=== PATIENT | female | born 1990 | race Hispanic/Latino ===

== ENCOUNTER 2024-10-15 21:35 | Emergency (ER) | payer BC, MEDICAID ==
[~2024-10-15] VITALS: Ht 149.9 cm; Wt 72.6 kg
[2024-10-15 21:36] VITALS: BP 146/93; PULSE 71; RESP 16; TEMP 97.9
--- NOTE | 2024-10-15 21:43 | NUR ---
UA CUP PROVIDED
[2024-10-15 21:57] LABS: BASOPHILS # (AUTO) 0.06 K/uL (0.00-0.20); BASOPHILS % (AUTO) 0.9 % (0.0-5.0); EOSINOPHILS # (AUTO) 0.04 K/uL (0.00-0.70); EOSINOPHILS % (AUTO) 0.6 % (0.0-8.0); IMMATURE GRANULOCYTE ABSOLUTE 0.01 K/uL (0-1); LYMPHOCYTES # (AUTO) 2.1 K/uL (1.0-4.8); LYMPHOCYTES % (AUTO) 30.5 % (21.0-51.0); MEAN CORPUSCULAR HEMOGLOBIN 28.6 pg (27.0-33.0); MEAN CORPUSCULAR HGB CONC 33.3 g/dL (32.0-36.0); MEAN CORPUSCULAR VOLUME 85.9 fL (79-99); MONOCYTES # (AUTO) 0.7 K/uL (0.1-1.0); MONOCYTES % (AUTO) 10.1 % (3.0-13.0); NEUTROPHILS % (AUTO) 57.8 % (40.0-77.0); PLATELET COUNT (AUTO) 293 K/uL (130-400); RED BLOOD CELL COUNT(AUTO) 4.19 MIL/uL (4.00-5.50); RED CELL DISTRIBUTION WIDTH 13.7 % (11.0-15.5); WHITE BLOOD COUNT (AUTO) 6.9 K/uL (4.8-10.8)
[2024-10-15 21:59] LABS: APPEARANCE,URINE CLEAR (CLEAR); BILIRUBIN,URINE NEGATIVE (NEGATIVE); COLOR,URINE LIGHT-YELLOW (YELLOW); GLUCOSE, URINE (UA) NEGATIVE (NEGATIVE); KETONES,URINE NEGATIVE (NEGATIVE); LEUKOCYTE ESTERASE ,URINE NEGATIVE Leu/uL (NEGATIVE); NITRATE,URINE NEGATIVE (NEGATIVE); OCCULT BLOOD,URINE SMALL (NEGATIVE); PROTEIN,URINE NEGATIVE (NEGATIVE); UROBILINOGEN,URINE 0.2 mg/dL (0.2-1.0)
[2024-10-15 22:01] LABS: ADD UA MICROSCOPIC YES
[2024-10-15 22:02] LABS: MUCUS,URINE RARE LPF (None Seen); SQUAMOUS EPITHELIAL CELL,UR RARE /HPF (0-2); WBC,URINE 0-1 /HPF (0-1)
[2024-10-15 22:06] LABS: CREATININE 0.8 mg/dL (0.5-1.0); POTASSIUM 3.5 mmol/L (3.5-5.1)
[2024-10-15 22:17] LABS: B-TYPE NATRIURETIC PEPTIDE < 5 pg/mL (0-100)
--- NOTE | 2024-10-16 01:26 | ERN ---
ED Note History of Present Illness Stated Complaint: CHEST PRESSURE Chief Complaint: Chest Pain Time Seen by MD: 21:43 Time Seen by Midlevel: 21:44 Dictation: 33-year-old female presents to the emergency department due to reported having some chest pressure sensation off and on for the past week but states that it started again today earlier this morning. She denies having any difficulty breathing associated with this. Patient states that there is no personal or family history of any cardiac condition. Upon initial evaluation, the patient presents in no acute distress. Allergies: Coded Allergies: No Known Drug Allergies (Unverified Allergy, Unknown, 05/23/16) Emergency Care [employer]: None Past Medical History Past Medical History: Hypertension Surgical History: LMP: Oct 13, 2024 RN Note Reviewed/Agreed w/PFSH: Yes Review of System Dictation Cardiovascular: Chest pressure Initial Vital Sign VS Vital Signs Date Time Temp Pulse Resp B/P (MAP) Pulse Ox O2 Delivery O2 Flow Rate FiO2 10/15/24 21:36 97.9 71 16 146/93 98 Room Air Physical Exam Dictation General: awake, alert, NAD Head/Face: Normocephalic, atraumatic Eyes: PERRL, EOMI ENT: Oral mucosa moist Neck: Trachea midline, supple Cardiovascular: RRR, no edema Respiratory: Symmetrical, non-labored Abdomen: Soft, non-tender, non-distended, no guarding. Skin: Warm, dry, good turgor, no rash MS/Extremity: Pulses equal, no cyanosis, neurovascular intact, FROM Neuro: COAx4, GCS 15, steady gait, Psych: Normal behavior, mood, and affect normal Results (Laboratory/Radiology) Laboratory/Radiology Laboratory Tests Test 10/15/24 21:47 10/16/24 00:19 White Blood Count 6.9 K/uL (4.8-10.8) Red Blood Count 4.19 MIL/uL (4.00-5.50) Hemoglobin 12.0 g/dL (12.0-16.0) Hematocrit 36.0 % (36-48) Mean Corpuscular Volume 85.9 fL (79-99) Mean Corpuscular Hemoglobin 28.6 pg (27.0-33.0) Mean Corpuscular Hemoglobin Concent 33.3 g/dL (32.0-36.0) Red Cell Distribution Width 13.7 % (11.0-15.5) Platelet Count 293 K/uL (130-400) Mean Platelet Volume 10.0 fL (7.5-10.5) Immature Granulocyte % (Auto) 0.1 % (0-1) Neutrophils (%) (Auto) 57.8 % (40.0-77.0) Lymphocytes (%) (Auto) 30.5 % (21.0-51.0) Monocytes (%) (Auto) 10.1 % (3.0-13.0) Eosinophils (%) (Auto) 0.6 % (0.0-8.0) Basophils (%) (Auto) 0.9 % (0.0-5.0) Neutrophils # (Auto) 4.0 K/uL (1.8-7.7) Lymphocytes # (Auto) 2.1 K/uL (1.0-4.8) Monocytes # (Auto) 0.7 K/uL (0.1-1.0) Eosinophils # (Auto) 0.04 K/uL (0.00-0.70) Basophils # (Auto) 0.06 K/uL (0.00-0.20) Absolute Immature Granulocyte (auto 0.01 K/uL (0-1) Nucleated Red Blood Cells 0.0 % (0.0-0.19) Urine Color LIGHT-YELLOW (YELLOW) Urine Appearance CLEAR (CLEAR) Urine pH 6.0 (5.0-8.0) Urine Specific [place] 1.014 (1.001-1.031) Urine Protein NEGATIVE mg/dL (NEGATIVE) Urine Glucose (UA) NEGATIVE mg/dL (NEGATIVE) Urine Ketones NEGATIVE mg/dL (NEGATIVE) Urine Occult Blood SMALL (NEGATIVE) H Urine Nitrate NEGATIVE (NEGATIVE) Urine Bilirubin NEGATIVE mg/dL (NEGATIVE) Urine Urobilinogen 0.2 mg/dL (0.2-1.0) Urine Leukocyte Esterase NEGATIVE [place]/uL Urine RBC 2-5 /HPF (0-1) H Urine WBC 0-1 /HPF (0-1) Urine Squamous Epithelial Cells RARE /HPF (0-2) Urine Bacteria None /HPF (None Seen) Sodium Level 140 mmol/L (136-145) Potassium Level 3.5 mmol/L (3.5-5.1) Chloride Level 102 mmol/L (101-111) Carbon Dioxide Level 30 mmol/L (21-32) Blood Urea Nitrogen 17 mg/dL (7-18) Creatinine 0.8 mg/dL (0.5-1.0) Glomerular Filtration Rate Calc 99 mL/min (>90) Random Glucose 98 mg/dL (70-105) Total Calcium 9.4 mg/dL (8.5-10.1) Total Creatine Kinase 76 U/L (21-232) Troponin I High Sensitivity < 4 ng/L (4-50) L < 4 ng/L (4-50) L B-Type Natriuretic Peptide < 5 pg/mL (0-100) EKG Comment: EKG done 10/15/2024 at 9:37 p.m. Ventricular rate 69 beats per minute GA 175 MS QRS 71 MS QT 406 No STEMI. X-RAY Comment: Chest x-ray one view with no infiltrates and a normal appearing cardiac silhouette as interpreted by me. ED Course ED Course Orders Procedure Category Date Status Time Vital Signs Per CPOE 10/15/24 Transmitted Routine 21:36 B-Type Natriuretic LAB 10/15/24 Complete Peptide 21:36 Chest 1vw RAD 10/15/24 Taken 21:36 12 Lead Ekg Tracing- EKG 10/15/24 Logged Technical 21:36 Oxygen By Nc/Pulse Ox CPOE 10/15/24 Transmitted 21:36 Maintain Iv CPOE 10/15/24 Transmitted 21:36 Iv Insertion CPOE 10/15/24 Transmitted 21:36 Cardiac Monitoring CPOE 10/15/24 Transmitted 21:36 Pulse Oximetry With CPOE 10/15/24 Transmitted Vs And Prn 21:36 Cbc With Differential LAB 10/15/24 Complete 21:36 Activity: Br W/Brp CPOE 10/15/24 Transmitted With Assist 21:36 Creatine Kinase, Total LAB 10/15/24 Complete 21:36 Troponin I High LAB 10/15/24 Complete Sensitivity 21:36 Urinalysis Profile LAB 10/15/24 Complete 21:36 Basic Metabolic Panel LAB 10/15/24 Complete 21:36 Troponin I High LAB 10/16/24 Complete Sensitivity 00:12 Vital Signs Date Time Temp Pulse Resp B/P (MAP) Pulse Ox O2 Delivery O2 Flow Rate FiO2 10/15/24 21:36 97.9 71 16 146/93 98 Room Air HEART Score Response (Comments) Value History: Low suspicion (0) 0 EKG: Normal 0 Age: < 45yrs (0) 0 Risk Factors: No known risk factors (0) 0 HEART Score Risk: Low Risk for MACE (1-3) Total 0 Medical Decision Making MDM MDM: Differential diagnosis: STEMI, non STEMI, chest pain. Rationale: Tests considered and ordered secondary to shared decision making include: Previous outside records reviewed: Old ER visits. Risk of complication and/or morbidity or mortality of patient management: None Medications-Per medication reconciliation Need for hospitalization: Patient does not meet criteria for hospitalization. Need for emergency major/minor surgery: No There are no social concerns with this patient. Prescription drug management Prescriptions will include symptomatic care Patient's prior external medical records from other ER visits were reviewed by me as indicated. Prior testing and results from previous visits were reviewed. Prior tests were taken into account with medical decision making and resource utilization, independent historian/historians were used to obtain complete medical history. I independently interpreted the test that were performed, results were reviewed by me and considered findings on radiology if ordered. Medical management and examination interpretation discussions were had by me with other qualified healthcare professionals as indicated for the patient's care. DX & DISP Disposition: Discharge Departure Impression: Primary Impression: Chest pain Condition: Stable Referrals: KRYSTINA VILLATORO (PCP) ANÍBAL GALINDO Oct 16, 2024 01:26
--- NOTE | 2024-10-16 06:48 | EKG ---
[facility] Test Date: 2024-10-15 Test Time: 21:37:52 Pat Name: HIRAM EMERSON Department: ED Room: Gender: [employer]: [id number] : 1990 Requested By: ANNIE DAO Order Number: [id number] Reading MD: Thai Valerio Measurements Intervals [place] Rate: 69 P: 52 NM: 175 QRS: 53 QRSD: 71 T: 52 QT: 406 QTc: 435 Interpretive Statements Sinus rhythm No previous ECG available for comparison Electronically Signed On 10-16-2024 17:17:08 CDT by Thai Valerio Please click the below link to view image of tracing.
--- NOTE | 2024-10-16 10:50 | HMCIMG ---
Exam Type: CHEST 1VW Clinical Information: CHEST PAIN Comparison: None Findings: The lungs are clear of infiltrates. The heart is normal in size. The bony and soft tissue structures of the chest are unremarkable. Impression: Clear lungs.
== END 2024-10-16 01:37 | disposition home or self-care (01) ==
LOC: EDH 21:35
DX: R07.89 Other chest pain (principal); I10 Essential (primary) hypertension; Z98.890 Other specified postprocedural states
CPT/HCPCS: 36415; 71045; 80048; 81001; 82550; 83880; 84484; 85025; 93005; 99284